=== PATIENT | female | born 1965 | race American Indian/Alaskan Native ===

== ENCOUNTER 2021-11-30 23:03 | Emergency (ER) | payer OTHER, MEDICARE ==
--- NOTE | 2021-12-01 05:55 | XRay Report ---
BILATERAL SHOULDER 7 VIEW(S) INDICATION / CLINICAL INFORMATION: pain. COMPARISON: None available. FINDINGS: BONES / JOINT(S): Intact reverse left total shoulder arthroplasty without periprosthetic fracture or dislocation. Normal alignment of the right shoulder without acute fracture or dislocation. Some mild right glenohumeral degenerative osteoarthritis with a small medial humeral head osteophyte. SOFT TISSUES: No significant abnormality. ADDITIONAL FINDINGS: None. IMPRESSION: 1. No acute findings. 2. Intact reverse left total shoulder arthroplasty. 3. Mild right glenohumeral degenerative osteoarthritis. Signer Name: Dell Shah MD Signed: 12/01/2021 5:51 AM Workstation Name: [id number]
[2021-12-01] MEDS ORDERED: ONDANSETRON 4 MG/2 ML INJ IM ONE (07:53)
[2021-12-01] MEDS ORDERED: fentaNYL 100 MCG/2 ML INJ IM ONE (07:53)
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
[2021-12-01 08:34] VITALS: BP 127/72
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
== END 2021-12-01 09:27 | disposition home or self-care (01) ==
LOC: ED 23:03
DX: S16.1XXA Strain of muscle, fascia and tendon at neck level, initial encounter (principal); S09.90XA Unspecified injury of head, initial encounter; S40.012A Contusion of left shoulder, initial encounter; J45.909 Unspecified asthma, uncomplicated; E11.9 Type 2 diabetes mellitus without complications; F17.200 Nicotine dependence, unspecified, uncomplicated; Y09 Assault by unspecified means; Y93.89 Activity, other specified; Y92.89 Other specified places as the place of occurrence of the external cause; Y99.8 Other external cause status
CPT/HCPCS: 70450; 72125; 73030; 96372; 99284; J2405; J3010